=== PATIENT | female | born 1965 | race Caucasian/White ===

== ENCOUNTER 2021-07-24 04:09 | Observation (INO) | payer OTHER ==
[2021-07-24 04:22] VITALS: BMI 25.3
[2021-07-24] MEDS ORDERED: ONDANSETRON 4 MG/2 ML VIAL IVPUSH ONE (04:57)
[2021-07-24] MEDS ORDERED: ONDANSETRON 4 MG/2 ML VIAL ONE (05:07)
[2021-07-24 05:35] LABS: EOS % 0.9 % (0-4.5); HEMATOCRIT 37.2 % (32.4-45.2); LYMPH % 23.9 % (8-40); MEAN CELL VOLUME 88.6 fl (80-96); MEAN PLT VOLUME 7.1 fl (7.5-11.1); MONO % 4.7 % (3.8-10.2); NEUT % 68.5 % (42.8-82.8); PLATELET COUNT 376 10^3/uL (134-434); RDW 13.6 % (11.6-15.6); WHITE BLOOD COUNT 7.5 K/mm3 (4.0-10.0)
[2021-07-24 05:55] LABS: INR 0.97 (0.83-1.09); PROTHROMBIN TIME (PATIENT) 11.2 SEC (9.7-13.0)
[2021-07-24 05:58] LABS: ACTIVATED PTT 38.7 SECONDS (25.2-36.5)
[2021-07-24 06:12] LABS: CALCIUM 9.2 mg/dL (8.5-10.1)
[2021-07-24 06:13] LABS: BLOOD UREA NITROGEN 14.9 mg/dL (7-18)
[2021-07-24 06:16] LABS: CREATININE 0.8 mg/dL (0.55-1.3)
[2021-07-24 06:17] LABS: BILIRUBIN,TOTAL 0.2 mg/dL (0.2-1); TOT PROT 7.6 g/dl (6.4-8.2)
[2021-07-24] MEDS ORDERED: ACETAMINOPHEN 325 MG TABLET (FP) PO PRN (11:27)
[2021-07-24] MEDS ORDERED: amLODIPine BESYLATE 5 MG TABLET (FP) ONE (11:53)
[2021-07-24] MEDS ORDERED: HYDROCHLOROTHIAZIDE 25 MG TABLET (FP) ONE (11:53)
[2021-07-24] MEDS: amLODIPine BESYLATE 5 MG TABLET (FP) PO SCH (12:12)
[2021-07-24] MEDS: HYDROCHLOROTHIAZIDE 25 MG TABLET (FP) PO SCH (12:12)
[2021-07-24] MEDS ORDERED: ACETAMINOPHEN 325 MG TABLET (FP) ONE (16:00)
[2021-07-24] MEDS: HEPARIN NA (PORCINE) 5,000 UNITS/ML 1ML VIAL SQ SCH (23:00)
[2021-07-25 05:14] VITALS: TEMP 97.8
[2021-07-25] MEDS ORDERED: HEPARIN NA (PORCINE) 5,000 UNITS/ML 1ML VIAL ONE (09:27)
[2021-07-25] MEDS ORDERED: amLODIPine BESYLATE 5 MG TABLET (FP) ONE (09:27)
[2021-07-25] MEDS ORDERED: HYDROCHLOROTHIAZIDE 25 MG TABLET (FP) ONE (09:27)
[2021-07-25] MEDS: HEPARIN NA (PORCINE) 5,000 UNITS/ML 1ML VIAL SQ SCH (09:32)
[2021-07-25] MEDS: amLODIPine BESYLATE 5 MG TABLET (FP) PO SCH (09:41)
[2021-07-25] MEDS: HYDROCHLOROTHIAZIDE 25 MG TABLET (FP) PO SCH (09:41)
[2021-07-25 09:42] VITALS: BP 124/85; PULSE 67
== END 2021-07-25 09:45 | disposition home or self-care (01) ==
LOC: JER 04:09 → JERBED 06:53
PROVIDERS: ADMIT Internal Medicine; ATTEND Internal Medicine
DX: I10 Essential (primary) hypertension (principal); R73.03 Prediabetes; E07.9 Disorder of thyroid, unspecified; F41.9 Anxiety disorder, unspecified; R00.2 Palpitations; R55 Syncope and collapse; R11.0 Nausea
CPT/HCPCS: 36415; 70450-TC; 71045-TC-FY; 80053; 83036; 84439; 84443; 84484; 85025; 85610; 85730; 86850; 86900; 86901; 93005; 93010; 99285-25; C9803-CS; G0378; J1644; U0003; U0005